=== PATIENT | female | born 1950 | race Caucasian/White ===

== ENCOUNTER → 2017-08-02 | Outpatient (CLI) | payer MEDICARE, BC ==
--- NOTE | 2017-08-02 13:49 | RAD ---
Bone densitometry scan, 08/02/2017: History: Postmenopausal screening The lumbar spine and right hip were examined utilizing a DEXA technique. The bone mineral density in the lumbar spine as measured from the L1-L4 levels is 1.11 g/sq cm. This yields a T score of -0.6 which is in the normal range. The total T score at the right hip is -1.3 compatible with osteopenia. IMPRESSION: Osteopenia at the right hip.
== END | disposition home or self-care (01) ==
LOC: DXRAD 09:29
PROVIDERS: ATTEND Specialist
DX: M85.88 Other specified disorders of bone density and structure, other site (principal); Z78.0 Asymptomatic menopausal state
CPT/HCPCS: 77080

== ENCOUNTER 2018-05-19 10:46 | Emergency (ER) | payer MEDICARE, BC ==
[~2018-05-19] VITALS: Ht 160 cm; Wt 54.4 kg
--- NOTE | 2018-05-19 11:18 | ED.ADGEN ---
Adult General Chief Complaint Chief Complaint Right shoulder injury HPI HPI Patient was chasing after her dog this morning 30 minutes ago, try to keep her dog away from the neighbors mastiff dog. The patient tripped on a garden hose and landed onto her right shoulder with injury. Since then, she's not been able to move her right shoulder. She noted no other injury. She denies any head trauma or loss of consciousness. She denies blood thinner use. She was able to tolerate coming to the emergency department. Patient was ambulatory. Review of Systems Review of Systems Constitutional: Denies fever or chills Eyes: Denies change in visual acuity, redness, or eye pain HENT: Denies nasal congestion or sore throat Respiratory: Denies cough or shortness of breath Cardiovascular: Denies chest pain or SOB GI: Denies abdominal pain, nausea, vomiting, bloody stools or diarrhea : Denies dysuria or hematuria Musculoskeletal: Denies back and neck pain. Patient has right shoulder pain with deformity Integument: Denies rash or skin lesions Neurologic: Denies headache, focal weakness or sensory changes Endocrine: Denies polyuria or polydipsia All other systems were reviewed and found to be within normal limits, except as documented in this note. Current Medications Current Medications Current Medications Medications (Trade) Dose Ordered Sig/Arun Start Time Stop Time Status Last Admin Dose Admin Fentanyl Citrate (Fentanyl 2ml Vial) 200 mcg 1X ONCE 05/19/18 13:15 05/19/18 13:16 DC 05/19/18 13:36 200 MCG Ondansetron HCl (Zofran) 4 mg 1X ONCE 05/19/18 15:40 05/19/18 15:41 DC 05/19/18 15:19 4 MG Propofol 20 ml @ As Directed STK-MED ONCE 05/19/18 14:50 05/19/18 14:51 DC Propofol (Diprivan) 40,000 mcg 1X ONCE 05/19/18 15:15 05/19/18 15:16 DC 05/19/18 15:21 40,000 MCG Allergies Allergies Allergies Coded Allergies Type Severity Reaction Last Updated Verified captopril Allergy Unknown 05/19/18 Yes lisinopril Allergy Unknown 05/19/18 Yes Physical Exam Physical Exam Constitutional: Well developed, well nourished, in moderate pain distress, non- toxic appearance. HENT: Normocephalic, atraumatic, bilateral external ears normal, oropharynx moist, no oral exudates, nose normal. Eyes: PERRLA, EOMI, conjunctiva normal, no discharge. Neck: Normal range of motion, no tenderness, supple, no stridor. Cardiovascular:Heart rate regular rhythm, no murmur Lungs & Thorax: Bilateral breath sounds clear to auscultation Abdomen: Bowel sounds normal, soft, no tenderness, no masses, no pulsatile masses. Skin: Warm, dry, no erythema, no rash. Back: No tenderness, no CVA tenderness. Extremities: Right shoulder deformity-squared shoulder, with marked right shoulder tenderness,no cyanosis, no clubbing, no edema. Right radial and ulnar pulses intact. Neurologic: Alert and oriented X 3, normal motor function, normal sensory function, no focal deficits noted. Distal neurovascular exam intact to light touch and position sense. Psychologic: Affect normal, judgement normal, mood normal. Current Patient Data Vital Signs Vital Signs Date Time Temp Pulse Resp B/P (MAP) Pulse Ox O2 Delivery O2 Flow Rate FiO2 05/19/18 15:57 53 18 99 05/19/18 13:00 122/58 (79) Room Air 05/19/18 10:53 98.2 EKG EKG [] Radiology/Procedures Radiology/[place]cedures [place] [address] IMAGING REPORT Signed PATIENT: KATIE LEIVNE ACCOUNT: [id number] : 1950 LOCATION: ER AGE: 67 SEX: F EXAM STATUS: PRE ER ORD. PHYSICIAN: ANNEMARIE FIGUEROA MD REASON: injury PROCEDURE: SHOULDER 2+V RIGHT HUMERUS RIGHT, CHEST PA LATERAL, SHOULDER 2+V RIGHT Two-view chest: Technique: PA and lateral views of the chest were obtained. Clinical History: right Humerus pain, pt fell today Comparison: None. Findings: The heart and pulmonary vasculature appear within normal limits. The lungs are clear. The pleural margins are clear. Impression: No acute chest process is seen. End impression Two View right humerus: Clinical History: Pain. Technique: AP and lateral views were obtained. Comparison: None. Findings: There is anterior dislocation of right shoulder. The visualized osseous structures appear intact. Impression: No fracture seen. End impression Three views right shoulder Internally and externally rotated AP of shoulder obtained, as well as "Y" view. The humeral head is anterior and inferior and medial to the glenoid. The visualized osseous structures appear normal. Impression: Anterior dislocation of the right shoulder. end impression Electronically signed by: Jania Barbosa III, MD (05/19/2018 12:05 PM) [facility] DICTATED AND SIGNED BY: JANIA BARBOSA III, MD DATE: 05/19/18 1201 CC: YVETTE MERA MD; ANNEMARIE FIGUEROA MD ~ [address] [address] IMAGING REPORT Signed PATIENT: KATIE LEVINE ACCOUNT: [id number] : 1950 LOCATION: ER AGE: 67 SEX: F EXAM STATUS: PRE ER ORD. PHYSICIAN: ANNEMARIE FIGUEROA MD REASON: POST REDUCTION PROCEDURE: SHOULDER 2+V RIGHT Right shoulder radiograph 05/19/2018 3:10 PM INDICATION: Right shoulder dislocation status post reduction COMPARISON: Right shoulder radiograph earlier today TECHNIQUE: 2 views the right shoulder are provided. FINDINGS: There is no acute fracture or dislocation. The glenoid is not well profiled. Bone mineralization is within normal limits. Mild acromioclavicular osteoarthrosis. Regional soft tissues are within normal limits. There is no soft tissue gas or osseous erosion. IMPRESSION: No acute fracture or dislocation status post reduction. Inferior glenoid is not well profiled. If there is persistent clinical concern or pain, consideration for additional imaging may be of benefit. Electronically signed by: Luis Miguel Galeana MD (05/19/2018 3:46 PM) [facility] DICTATED AND SIGNED BY: LUIS MIGUEL GALEANA MD DATE: 05/19/18 7714 CC: YVETTE MERA MD; ANNEMARIE FIGUEROA MD ~ [address] [address] IMAGING REPORT Signed PATIENT: KATIE LEVINE ACCOUNT: [id number] : 1950 LOCATION: ER AGE: 67 SEX: F EXAM STATUS: PRE ER ORD. PHYSICIAN: ANNEMARIE FIGUEROA MD REASON: injury PROCEDURE: CHEST PA & LATERAL HUMERUS RIGHT, CHEST PA LATERAL, SHOULDER 2+V RIGHT Two-view chest: Technique: PA and lateral views of the chest were obtained. Clinical History: right Humerus pain, pt fell today Comparison: None. Findings: The heart and pulmonary vasculature appear within normal limits. The lungs are clear. The pleural margins are clear. Impression: No acute chest process is seen. End impression Two View right humerus: Clinical History: Pain. Technique: AP and lateral views were obtained. Comparison: None. Findings: There is anterior dislocation of right shoulder. The visualized osseous structures appear intact. Impression: No fracture seen. End impression Three views right shoulder Internally and externally rotated AP of shoulder obtained, as well as "Y" view. The humeral head is anterior and inferior and medial to the glenoid. The visualized osseous structures appear normal. Impression: Anterior dislocation of the right shoulder. end impression Electronically signed by: Jania Barbosa III, MD (05/19/2018 12:05 PM) [facility] DICTATED AND SIGNED BY: JANIA BARBOSA III, MD DATE: 05/19/18 120 CC: YVETTE MERA MD; ANNEMARIE FIGUEROA MD ~ [place] [address] IMAGING REPORT Signed PATIENT: KATIE LEVINE ACCOUNT: [id number] : 1950 LOCATION: ER AGE: 67 SEX: F EXAM STATUS: PRE ER ORD. PHYSICIAN: ANNEMARIE FIGUEROA MD REASON: injury PROCEDURE: HUMERUS RIGHT HUMERUS RIGHT, CHEST PA LATERAL, SHOULDER 2+V RIGHT Two-view chest: Technique: PA and lateral views of the chest were obtained. Clinical History: right Humerus pain, pt fell today Comparison: None. Findings: The heart and pulmonary vasculature appear within normal limits. The lungs are clear. The pleural margins are clear. Impression: No acute chest process is seen. End impression Two View right humerus: Clinical History: Pain. Technique: AP and lateral views were obtained. Comparison: None. Findings: There is anterior dislocation of right shoulder. The visualized osseous structures appear intact. Impression: No fracture seen. End impression Three views right shoulder Internally and externally rotated AP of shoulder obtained, as well as "Y" view. The humeral head is anterior and inferior and medial to the glenoid. The visualized osseous structures appear normal. Impression: Anterior dislocation of the right shoulder. end impression Electronically signed by: Jania Barbosa III, MD (05/19/2018 12:05 PM) [facility] DICTATED AND SIGNED BY: JANIA BARBOSA III, MD DATE: 05/19/18 120 CC: YVETTE MERA MD; ANNEMARIE FIGUEROA MD ~ Course & Med Decision Making Course & Med Decision Making The patient presents with right shoulder injury with dislocation DDx- dislocation, fracture, contusion The patient was stable in the ED. Right shoulder x-ray showed anterior dislocation. Attempted reduction via Lopez method not successful. Patient underwent conscious sedation with Propofol with successful reduction of right shoulder. Post reduction films noted reduction without fracture. DNVI. Patient placed in sling and given Orthopedic follow-up. Patient given Martin prescription. Final Impression Final Impression Clinical Impression Right Shoulder Dislocation Dragon Disclaimer Dragon Disclaimer This electronic medical record was generated, in whole or in part, using a voice recognition dictation system. Procedural Sedation Proc Sed 15:20 Indication: Right anterior shoulder dislocation Consent: Yes, signed consent Physician Involvement: The attending physician was present and supervising this procedure. Pre-Sedation Documentation and Exam: ASA Class II Airway Assessment: Mallampati score I Prior History of Anesthesia Complications: No ASA Classification: 2 Sedation/ Anesthesia Plan: Cardiac monitoring, oxygen supplementation, Suction, BVMask at bedside, Propofol Medications Used: Propofol Monitoring and Safety: The patient was placed on a monitor worker and vital signs, pulse oximetry and level of consciousness were continuously evaluated throughout the procedure. The patient was closely monitored until recovery from the medications was complete and the patient had returned to baseline status. Respiratory therapy was on standby at all times during the procedure. (The following sections must be completed) Post-Sedation Vital Signs: [EDM.VS] see nursing notes Post-Sedation Exam: Back to baseline @ 15:45 Complications: None Vital Signs Vital Signs Date Time Temp Pulse Resp B/P (MAP) Pulse Ox O2 Delivery O2 Flow Rate FiO2 05/19/18 15:57 53 18 99 05/19/18 13:00 122/58 (79) Room Air 05/19/18 10:53 98.2 Joint Reduction Joint Reduction : Joint Reduction Site: shoulder (R) Conscious Sedation: No Reduction Attempts: 2 Pre-Procedure NV Exam: Yes Post-Procedure NV Exam: Yes Post Joint Reduction Film: joint reduced Progress Initial right shoulder reduction attempt via Lopez method was not successful. Subsequent reduction via conscious sedation with medial scapular rotation and traction was successful. DNVI. Post reduction x-ray showed successful reduction of right shoulder. Patient placed in right shoulder sling. Departure Departure: Impression: Primary Impression: Closed dislocation of right shoulder Disposition: HOME, SELF-CARE Condition: STABLE Patient Instructions: Shoulder Dislocation, [id number], Shoulder Immobilizer Additional Instructions: Follow-up with orthopedics, Dr. Morris on Monday for further evaluation [facility] [address] [place] [address] Scripts Hydrocodone Bit/Acetaminophen (NORCO 5-325 TABLET) 1 Each Tablet 1 TAB PO PRN Q6HRS PRN for PAIN for 3 Days, #12 TAB 0 Refills Prov: ANNEMARIE FIGUEROA MD 05/19/18 ANNEMARIE FIGUEROA MD May 19, 2018 11:18
[2018-05-19] MEDS ORDERED: ONDANSETRON PF 4 MG/2 ML VIAL. IV ONE ×2 (11:45→15:40)
--- NOTE | 2018-05-19 12:08 | RAD ---
HUMERUS RIGHT, CHEST PA LATERAL, SHOULDER 2+V RIGHT Two-view chest: Technique: PA and lateral views of the chest were obtained. Clinical History: right Humerus pain, pt fell today Comparison: None. Findings: The heart and pulmonary vasculature appear within normal limits. The lungs are clear. The pleural margins are clear. Impression: No acute chest process is seen. End impression Two View right humerus: Clinical History: Pain. Technique: AP and lateral views were obtained. Comparison: None. Findings: There is anterior dislocation of right shoulder. The visualized osseous structures appear intact. Impression: No fracture seen. End impression Three views right shoulder Internally and externally rotated AP of shoulder obtained, as well as "Y" view. The humeral head is anterior and inferior and medial to the glenoid. The visualized osseous structures appear normal. Impression: Anterior dislocation of the right shoulder. end impression Electronically signed by: Konrad Gonsales III, MD (05/19/2018 12:05 PM) [facility]
[2018-05-19] MEDS ORDERED: PROPOFOL 20 ML IV ONE (14:50)
[2018-05-19] MEDS ORDERED: PROPOFOL 10,000 MCG/ML (20ML) VIAL IV ONE (15:15)
--- NOTE | 2018-05-19 15:49 | RAD ---
Right shoulder radiograph 05/19/2018 3:10 PM INDICATION: Right shoulder dislocation status post reduction COMPARISON: Right shoulder radiograph earlier today TECHNIQUE: 2 views the right shoulder are provided. FINDINGS: There is no acute fracture or dislocation. The glenoid is not well profiled. Bone mineralization is within normal limits. Mild acromioclavicular osteoarthrosis. Regional soft tissues are within normal limits. There is no soft tissue gas or osseous erosion. IMPRESSION: No acute fracture or dislocation status post reduction. Inferior glenoid is not well profiled. If there is persistent clinical concern or pain, consideration for additional imaging may be of benefit. Electronically signed by: Carolyn Greenwood MD (05/19/2018 3:46 PM) [facility]
[2018-05-19 15:57] VITALS: BP 163/72
[2018-05-19] MEDS ORDERED: HYDR-971 PO (16:40)
== END 2018-05-19 16:47 | disposition home or self-care (01) ==
LOC: ER 10:46
DX: S43.014A Anterior dislocation of right humerus, initial encounter (principal); Z88.8 Allergy status to other drugs, medicaments and biological substances; W01.0XXA Fall on same level from slipping, tripping and stumbling without subsequent striking against object, initial encounter; Y93.89 Activity, other specified; Y92.89 Other specified places as the place of occurrence of the external cause; Y99.8 Other external cause status
CPT/HCPCS: 23650; 71046; 73030; 73060; 96374; 96375; 96376; 99285; J2405; J2704; J3010

== ENCOUNTER → 2019-09-25 | Outpatient (CLI) | payer MEDICARE, BC ==
[~2019-09-25] MED LIST: HYDR-3165 PO
--- NOTE | 2019-09-25 12:47 | RAD ---
CT scan of the paranasal sinuses without contrast 09/25/2019 CLINICAL HISTORY: Left ear pain. TECHNIQUE: Unenhanced, contiguous, 0.625 mm axial sections were obtained through the paranasal sinuses. 3 mm reconstructed sagittal, axial and coronal images were obtained. One or more of the following individualized dose reduction techniques were utilized for this study: 1. Automated exposure control. 2. Adjustment of the mA and/or kV according to patient size. 3. Use of iterative reconstruction technique. FINDINGS: The paranasal sinuses are well aerated and are clear. No air-fluid level is seen. The ostiomeatal units are patent bilaterally. The mastoid air cells and middle ear cavities are well aerated and are clear. Moderate to severe degenerative changes are seen involving both TMJs, right greater than left. IMPRESSION: Essentially negative study. Electronically signed by: Abebe Sifuentes MD (09/25/2019 12:44 PM) [id number]
== END | disposition home or self-care (01) ==
LOC: CT 11:21
PROVIDERS: ATTEND Specialist
DX: M26.69 Other specified disorders of temporomandibular joint (principal); H92.02 Otalgia, left ear
CPT/HCPCS: 70480